=== PATIENT | female | born 1980 | race Caucasian/White ===

== ENCOUNTER 2021-11-03 10:35 | Emergency (ER) | payer OTHER, MEDICAID ==
[~2021-11-03] VITALS: Ht 162.6 cm; Wt 75.7 kg
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
--- NOTE | 2021-11-03 10:46 | NUR ---
Dr. Anderson at bedside examining pt.
[2021-11-03 10:49] VITALS: BP_SYST 143
[2021-11-03] MEDS ORDERED: IBUP-1969 PO (10:53)
--- NOTE | 2021-11-03 11:00 | NUR ---
Assessed patient at bedside. Patient on continuous provider relations manager. She maintains stable vital signs.
[2021-11-03 13:17] VITALS: BP_SYST 125
--- NOTE | 2021-11-03 13:18 | NUR ---
Patient given written and verbal discharge instructions and verbalizes understanding. ER MD discussed with patient the results and treatment provided. Patient in stable condition. ID arm band removed.
== END 2021-11-03 13:18 | disposition home or self-care (01) ==
LOC: SED 10:35
DX: S23.3XXA Sprain of ligaments of thoracic spine, initial encounter (principal); S13.4XXA Sprain of ligaments of cervical spine, initial encounter; F41.9 Anxiety disorder, unspecified; Z79.899 Other long term (current) drug therapy; V49.49XA Driver injured in collision with other motor vehicles in traffic accident, initial encounter; Y93.89 Activity, other specified; Y92.89 Other specified places as the place of occurrence of the external cause; Y99.8 Other external cause status
CPT/HCPCS: 71045; 72072-TC; 72100-TC; 99284